=== PATIENT | male | born 1970 | race African-American/Black ===

== ENCOUNTER 2020-06-21 14:19 | Emergency (ER) | payer MEDICAID, SELFPAY ==
--- NOTE | 2020-06-21 14:33 | ED.GENADULT ---
HPI - General Adult General Chief complaint: Chest Pain Stated complaint: CHEST PRESSURE,COUGH,EXP TO COVID Time Seen by Provider: 06/21/20 14:32 Source: patient Mode of arrival: ambulatory Limitations: no limitations History of Present Illness HPI narrative: Mr. Kunz is a 50-year-old male who reports that he has history of hypercholesteremia otherwise no medical/surgical history he presents from home via EMS with complaint of diffuse chest pain and cough with some associated shortness of breath going on for past several days. States his is here admitted to facility for COVID-19 and he has been with her prior to her admission here. He denies any lower extremity swelling. No exertional dyspnea. Upon arrival 98% on room air though slightly tachy at 110. No fever. Onset (ago): day(s) Location: chest Severity: mild Quality: aching Associated symptoms: chest pain and cough Treatments prior to arrival: none Related Data Allergies Allergy/AdvReac Type Severity Reaction Status Date / Time No Known Allergies Allergy Verified 06/21/20 14:51 [No Known Allergies*] Review of Systems Review of Systems: Constitutional: No Weight loss, No Fever, No Chills, No Night Sweats, No Fatigue, No Malaise ENT/Mouth: No Hearing loss, No Ear Pain, No Sinus Pain, No Hoarseness, No sore throat, + Rhinorrhea, No Swallowing Difficulty Eyes: No Eye Pain, No Swelling, No Redness, No Foreign Body, No Discharge, No Vision Changes Cardiovascular: + Chest Pain, No SOB, No Dyspnea on Exertion, No Orthopnea, No Edema, No Palpitations Respiratory: + Cough, No Sputum, No Wheezing, No Smoke Exposure, No Dyspnea Gastrointestinal: No Nausea, No Vomiting, No Diarrhea, No Constipation, No abdominal Pain, No Hematochezia, No Melena Genitourinary: no irregular bleeding, No Dysuria, No Urinary Frequency, No Hematuria, No Urinary Incontinence, No Urgency, No Flank Pain Musculoskeletal: No joint pain, No Myalgias, No Joint Swelling Skin: No Skin Lesions, No rash Neuro: No Weakness, No Numbness, No Paresthesias, No Loss of Consciousness, No Dizziness, No Headache Psych: No Social Issues Heme/Lymph: No Bruising, No Bleeding,No Lymphadenopathy Endocrine: No Polyuria, No Polydipsia, No Temperature Intolerance Yes all other systems are reviewed and are negative PMFSH Past Medical History Medical History (Updated 06/21/20 @ 16:32 by Sidney Sutherland NP) No known health problems Social History Social History Advance Directives: No Advance Directives Information Provided: No Physical Exam Vital Signs: Vital Signs: Last Vital Signs Temp 98.5 F 06/21/20 15:53 Pulse 96 06/21/20 15:53 Resp 20 06/21/20 15:53 BP 136/105 H 06/21/20 15:53 Pulse Ox 99 06/21/20 15:53 Body Mass Index 27.3 Reviewed Const: General: cooperative and healthy appearing; No acute distress or intoxicated appearing Nutritional Appearance: average body habitus Orientation/consciousness: patient oriented x3 HENMT: Head: Yes normal to inspection Ears: hearing grossly normal bilaterally General nose exam: Other nasal findings present (Very mild rhinorrhea) Eyes: General: appearance normal, both eyes and all related structures Visual Pinto: normal visual pinto by confrontation Neck: Neck: Yes normal visual inspection and No tender Thyroid: Thyroid normal Chest: Chest palpation & inspection: normal inspection of the chest Resp: Effort & Inspection: normal respiratory effort Auscultation: clear to auscultation bilaterally Cardio: Jugular venous distension: no JVD Rhythm: regular rhythm Heart sounds: S1 normal heart sound present and S2 normal heart sound present GI: Inspection: Yes normal to inspection Percussion: Yes normal to percussion Auscultation: normal bowel sounds : General: Yes no CVA tenderness Back/Spine/Pelvis: Back: no CVA tenderness Skin: General skin exam: no rashes or lesions noted Neuro: General: patient oriented x3 Extrem: General: Yes normal to inspection Course Course Course Narrative: In review 42-year-old male with history of hypercholesteremia diet-controlled otherwise no significant past medical history presenting with complaint of cough, shortness of breath, associated pleurisy type chest pain ongoing for the past 2-3 days hospitalized for COVID-19 he is concerned he might have it. Clinically well nontoxic appearing. He is slightly tachy at 101 does appear to be somewhat nervous otherwise well nontoxic appearing. His oxygen level 99% on room air. Blood pressure is stable. At this time given his exposure and symptoms will go ahead and check EKG, chest x-ray, cardiac enzymes and a D-dimer as well as COVID, RSV, flu. Will treat with gradual fluids. Reevaluation(s) Reevaluation #1: Labs overall unrevealing. Troponin as well as D-dimer negative. Chest x-ray without acute consolidation/disease. He has been resting comfortably he is ambulatory with steady gait without any evidence of hypoxia oxygen remains at 98%. Will be discharged home with supportive care, return follow-up instructions. [facility] provided. Patient is stable for discharge. Medical Decision Making MDM Narrative Medical decision making narrative: Differential diagnosis include but not limited to viral syndrome, COVID-19, COVID-19 related pneumonia, pulmonary embolism, ACS, dissection less likely. Lab Data Result diagrams: 06/21/20 15:25 06/21/20 15:25 Labs: Lab Results 06/21/20 06/21/20 06/21/20 Range/Units 15:25 15:25 15:25 WBC 5.0 (4.8-10.8) X10*3/uL RBC 5.46 (4.60-5.80) X10*6/uL Hgb 14.5 (14.0-18.0) g/dl Hct 45.6 (42-52) % MCV 83.5 (80-98) fL MCH 26.6 L (27.0-33.0) pg MCHC 31.8 (31.0-36.0) g/dl RDW 14.0 (11.0-16.0) % Plt Count 217 (160-400) X10*3/uL MPV 10.1 (9.4-12.4) fL Immature Gran % (Auto) 0.2 (0.0-0.4) % Neut % (Auto) 60.9 (45-73) % Lymph % (Auto) 26.0 (20-40) % [place] % (Auto) 9.9 (2-11) % Eos % (Auto) 2.2 (0-4) % Baso % (Auto) 0.8 (0-2) % Lymph # (Auto) 1.3 (1.2-4.9) X10*3/uL [place] # (Auto) 0.5 (0.1-1.2) X10*3/uL Eos # (Auto) 0.1 (0.0-0.4) X10*3/uL Baso # (Auto) 0.0 (0.0-0.2) X10*3/uL Abs Immat Gran (auto) 0.01 (0.00-0.03) X10*3/uL Absolute Neuts (auto) 3.0 (2.0-8.3) X10*3/uL Absolute Nucleated RBC 0.000 (0.0-0.012) X10*3/uL Nucleated RBC % (auto) 0.0 (0.0-0.2) /100WBC PT 11.8 (10.8-13.0) SEC INR 1.0 (0.9-1.1) APTT 35.1 (24.1-38.0) SEC D-Dimer < 200 NG/ML Sodium 140 (135-145) mmol/L Potassium 4.0 (3.3-5.1) mmol/l Chloride 105 (96-108) mmol/L Carbon Dioxide 27 (22-29) mmol/L Anion Gap 12 (12-20) BUN 14 (9-16) mg/dL Creatinine 1.04 (0.5-1.4) mg/dL Estim Creat Clear Calc 84.0 Estimated GFR > 60 Random Glucose 94 (60-115) mg/dL Calcium 8.9 (8.4-10.2) mg/dL Total Bilirubin 0.3 (0.0-1.0) mg/dL AST 18 (5-37) U/L ALT 22 (0-40) U/L Alkaline Phosphatase 55 (39-117) U/L Troponin I High Sens (<3.5-35.0) ng/L Total Protein 7.6 (6.5-8.0) g/dL Albumin 4.6 (3.5-5.0) g/dL Coronavirus (PCR) (Negative) Influenza Type A (PCR) (Negative) Influenza Type B (PCR) (Negative) RSV RNA Qual (PCR) (Negative) 06/21/20 06/21/20 Range/Units 15:25 15:25 WBC (4.8-10.8) X10*3/uL RBC (4.60-5.80) X10*6/uL Hgb (14.0-18.0) g/dl Hct (42-52) % MCV (80-98) fL MCH (27.0-33.0) pg MCHC (31.0-36.0) g/dl RDW (11.0-16.0) % Plt Count (160-400) X10*3/uL MPV (9.4-12.4) fL Immature Gran % (Auto) (0.0-0.4) % Neut % (Auto) (45-73) % Lymph % (Auto) (20-40) % [place] % (Auto) (2-11) % Eos % (Auto) (0-4) % Baso % (Auto) (0-2) % Lymph # (Auto) (1.2-4.9) X10*3/uL [place] # (Auto) (0.1-1.2) X10*3/uL Eos # (Auto) (0.0-0.4) X10*3/uL Baso # (Auto) (0.0-0.2) X10*3/uL Abs Immat Gran (auto) (0.00-0.03) X10*3/uL Absolute Neuts (auto) (2.0-8.3) X10*3/uL Absolute Nucleated RBC (0.0-0.012) X10*3/uL Nucleated RBC % (auto) (0.0-0.2) /100WBC PT (10.8-13.0) SEC INR (0.9-1.1) APTT (24.1-38.0) SEC D-Dimer NG/ML Sodium (135-145) mmol/L Potassium (3.3-5.1) mmol/l Chloride (96-108) mmol/L Carbon Dioxide (22-29) mmol/L Anion Gap (12-20) BUN (9-16) mg/dL Creatinine (0.5-1.4) mg/dL Estim Creat Clear Calc Estimated GFR Random Glucose (60-115) mg/dL Calcium (8.4-10.2) mg/dL Total Bilirubin (0.0-1.0) mg/dL AST (5-37) U/L ALT (0-40) U/L Alkaline Phosphatase (39-117) U/L Troponin I High Sens < 3.5 (<3.5-35.0) ng/L Total Protein (6.5-8.0) g/dL Albumin (3.5-5.0) g/dL Coronavirus (PCR) POSITIVE A (Negative) Influenza Type A (PCR) NEGATIVE (Negative) Influenza Type B (PCR) NEGATIVE (Negative) RSV RNA Qual (PCR) NEGATIVE (Negative) Discharge Plan Discharge Clinical Impression: Atypical chest pain, COVID-19 Patient Disposition: Home, Self-Care Instructions: Chest Pain (ED), COVID-19 (Coronavirus Disease 2019) (ED) Additional Instructions: Today you were evaluated for your chest pain and your upper respiratory symptoms You had extensive workup including x-ray of her chest did not show any evidence of pneumonia We checked blood work for heart as well as kidneys and electrolytes which was also within normal limits. We also did another blood test to check for blood clots this was also negative You to isolate yourself Social distancing Remain out of any social activities, work for the next 14 days Supportive cares discussed Return if any concerns or worsening symptoms Thank you Referrals: Physician,Unknown [Primary Care Provider] - 2 weeks (Phone visit with her primary care doctor for well check)
--- NOTE | 2020-06-21 14:36 | ECG_ITS ---
Test Reason : CHEST PAIN Blood Pressure : / mmHG Vent. Rate : 095 BPM Atrial Rate : 095 BPM P-R Int : 176 ms QRS Dur : 080 ms QT Int : 336 ms P-R-T Axes : 054 017 024 degrees QTc Int : 422 ms Normal sinus rhythm Cannot exclude old Septal infarct , age undetermined but could be normal variant Abnormal ECG No previous ECGs available Referred By: Sidney Sutherland Electronically Signed By:CHAVO CROWE
--- NOTE | 2020-06-21 14:36 | XR_ITS ---
EXAMINATION: XR CHEST CLINICAL INFORMATION: Chest pain. COMPARISON: None TECHNIQUE: Frontal view of the chest was obtained. FINDINGS: No significant abnormality is noted involving the heart, lungs, mediastinum, bony thorax or soft tissues. XR/XR chest 1V IMPRESSION: Unremarkable chest examination.
[2020-06-21 14:47] VITALS: BP 146/89; PULSE 108; RESP 16; TEMP 36.9; O2SAT 96; BMI 27.3
--- NOTE | 2020-06-21 15:20 | PC.NURSE ---
called pt's pcp is dr menard at the [facility]
[2020-06-21] MEDS: 0.9 % Sodium Chloride 1,000 ML 999 ML IV (15:27)
[2020-06-21 15:33] LABS: Basophils Percent Auto 0.8 % (0-2); Eosinophils Absolute Auto 0.1 X10*3/uL (0.0-0.4); Eosinophils Percent Auto 2.2 % (0-4); Hematocrit 45.6 % (42-52); Hemoglobin 14.5 g/dl (14.0-18.0); Imm Gran Abs Auto 0.01 X10*3/uL (0.00-0.03); Imm Gran Pct Auto 0.2 % (0.0-0.4); Lymphocytes Absolute Auto 1.3 X10*3/uL (1.2-4.9); MANUAL DIFF FLAG NO; Mean Corpuscular HGB Conc 31.8 g/dl (31.0-36.0); Mean Corpuscular Hemoglobin 26.6 pg (27.0-33.0); Mean Corpuscular Volume 83.5 fL (80-98); Mean Platelet Volume 10.1 fL (9.4-12.4); Monocytes Absolute Auto 0.5 X10*3/uL (0.1-1.2); Monocytes Percent Auto 9.9 % (2-11); Neutrophils Percent Auto 60.9 % (45-73); Platelet Count 217 X10*3/uL (160-400); Red Blood Count 5.46 X10*6/uL (4.60-5.80)
[2020-06-21 15:41] LABS: Prothrombin Time 11.8 SEC (10.8-13.0)
[2020-06-21 15:43] LABS: Partial Thromboplastin Time 35.1 SEC (24.1-38.0)
[2020-06-21 15:44] LABS: D Dimer < 200 NG/ML
[2020-06-21 15:53] VITALS: BP 136/105; PULSE 96; RESP 20; TEMP 36.9; O2SAT 99
[2020-06-21 15:57] LABS: Alanine Aminotransferase 22 U/L (0-40); Albumin Level 4.6 g/dL (3.5-5.0); Alkaline Phosphatase 55 U/L (39-117); Anion Gap 12 (12-20); Aspartate Amino Transferase 18 U/L (5-37); Bilirubin Total 0.3 mg/dL (0.0-1.0); Blood Urea Nitrogen 14 mg/dL (9-16); Calcium 8.9 mg/dL (8.4-10.2); Carbon Dioxide 27 mmol/L (22-29); Chloride 105 mmol/L (96-108); Estimated Glomerular Filt Rate > 60; Glucose Random 94 mg/dL (60-115); Sodium 140 mmol/L (135-145); Total Protein 7.6 g/dL (6.5-8.0)
[2020-06-21 16:01] LABS: Troponin-I High Sensitivity < 3.5 ng/L (<3.5-35.0)
[2020-06-21 16:15] LABS: Influenza A PCR NEGATIVE (Negative); Influenza B PCR NEGATIVE (Negative); Resp Syncy Virus RNA Qual PCR NEGATIVE (Negative)
[2020-06-21 16:17] LABS: SARS COV2 PCR INHOUSE POSITIVE (Negative)
[2020-06-21 17:01] VITALS: BP 151/94; PULSE 86; RESP 16; O2SAT 100
== END 2020-06-21 17:37 | disposition home or self-care (01) ==
PROVIDERS: Nurse Practitioner Primary Care; Emergency Provider Emergency Medicine Emergency Medical Services
DX: U07.1 COVID-19 (principal); R05 Cough; R07.89 Other chest pain
CPT/HCPCS: 0241U; 36415; 71045; 80053; 84484; 85025; 85379; 85610; 85730; 93005; 96360; 99284

== ENCOUNTER 2020-07-03 11:06 | Emergency (ER) | payer MEDICAID, SELFPAY ==
[2020-07-03 11:21] VITALS: BP 130/83; PULSE 106; RESP 18; TEMP 37.7; O2SAT 98; BMI 25.8
--- NOTE | 2020-07-03 12:20 | ED_ITS ---
HPI - Abdominal Pain General Chief Complaint: Abdominal Pain Stated Complaint: flu like sx's Time Seen by Provider: 07/03/20 11:47 Source: patient Mode of arrival: ambulatory Limitations: no limitations History of Present Illness HPI narrative: Patient with COVID positive on 06/21 comes here with family member for ongoing of epigastric pain since was positive with COVID also complaining of mid chest pain patient also going on for more last 10 days patient denies any cough or shortness of breath patient came in just to be checked for COVID as her partner also came here to be tested patient denies any nausea/vomiting. Patient does have diarrhea 2-3 times bowel movements every day for last 2 weeks Related Data Allergies Allergy/AdvReac Type Severity Reaction Status Date / Time No Known Allergies Allergy Verified 06/21/20 14:51 [No Known Allergies*] Review of Systems Review of Systems Constitutional : No Weight loss, No Fever, No Chills ENT/Mouth : No sore throat, No Rhinorrhea Eyes: No Eye Pain, No Swelling Cardiovascular : + Chest Pain, no palpitations Respiratory : No Cough, No Sputum, no shortness of breath Gastrointestinal : no Nausea, No Vomiting, ++ Diarrhea, ++ abdominal Pain, no black stools Genitourinary : No Dysuria, No Urinary Frequency Musculoskeletal : No joint pain, No Myalgias, No Joint Swelling Skin : No Skin Lesions, No rash Neuro : No Weakness, No Numbness, No Dizziness, No Headache Psych : No Anxiety/Panic, No Depression Heme/Lymph: No Bruising, No Lymphadenopathy Endocrine : No Polyuria, No Polydipsia All other systems reviewed and are negative Physical Exam Vital Signs: Vital Signs: Last Vital Signs Temp 99.9 F 07/03/20 11:21 Pulse 106 H 07/03/20 11:21 Resp 18 07/03/20 11:21 BP 130/83 07/03/20 11:21 Pulse Ox 98 07/03/20 11:21 Body Mass Index 25.8 Appearance: Alert. Oriented X3. No acute distress. Eyes: Pupils equal, round and reactive to light. ENT: Pharynx normal. Neck: Normal inspection. Neck supple. CVS: Normal heart rate and rhythm. Pulses normal. Respiratory: No respiratory distress. Breath sounds normal. Abdomen: Soft mild epigastric tenderness Bowel sounds are present, no mass palpable, no CVA tenderness Skin: Skin warm and dry. Normal skin color. Normal skin turgor. Extremities: No lower extremity edema. Neuro: Oriented X 3. No motor deficit. No sensory deficit. MDM - Abdominal Pain Lab Data Attestation: I reviewed the patient's lab results. Labs: Lab Results 07/03/20 Range/Units 12:35 COVID-19 ([facility]) Negative (Negative) COVID-19 Clin Com See Note ECG Data Attestation: I personally reviewed and interpreted this ECG as follows: Interpretation: Normal sinus rhythm heart rate 98 normal intervals normal axis normal ST T wave changes impression normal EKG no acute ischemia Discharge Plan Discharge Clinical Impression: Chest pain of uncertain etiology, COVID-19 Patient Disposition: Home, Self-Care Instructions: Chest Pain (ED) Additional Instructions: Your repeat COVID testing is negative. Your cardiogram is normal. Follow-up with primary care doctor if any concerns Interventions: ED Discharge Assessment Last Done: 07/03/20 15:24 Discharge Date/Time: 07/03/20 15:25 [facility] Past Medical History Medical History No known health problems Social History Social History Smoking Status: Current every day smoker Advance Directives: No Advance Directives Information Provided: No
[2020-07-03 13:01] LABS: COVID-19 Test Negative (Negative)
== END 2020-07-03 15:25 | disposition home or self-care (01) ==
PROVIDERS: Emergency Provider Internal Medicine
DX: R07.9 Chest pain, unspecified (principal); Z86.16 Personal history of COVID-19
CPT/HCPCS: 36415; 87635; 99283

== ENCOUNTER 2020-07-08 10:14 | Emergency (ER) | payer MEDICAID, SELFPAY ==
[2020-07-08 10:39] VITALS: BP 154/90; PULSE 100; RESP 18; TEMP 37.1; O2SAT 96; BMI 25.8
[2020-07-08] MEDS: Lidocaine HCl 1%/Epi 1:100,000 20 ML VIAL 10 ML INFILTRATI (11:07)
--- NOTE | 2020-07-08 11:23 | ED.GENADULT ---
HPI - General Adult General Chief complaint: Extremity Injury, Lower Stated complaint: fb foot Time Seen by Provider: 07/08/20 10:34 Source: patient Mode of arrival: ambulatory Limitations: no limitations History of Present Illness HPI narrative: 50-year-old male who presents emergency department for evaluation of pain in his heel. He states that he was working in his yard, he was wearing sneakers when he stepped on something that went through his sneaker and into his left heel. He states that since then he feels like there is something in his heel and he is having pain when he walks. The patient states that he had a tetanus shot within 1 year. Related Data Previous Rx's Medication Instructions Recorded ciprofloxacin HCl [Cipro] 500 mg PO Q12H 7 Days #14 tab 07/08/20 Allergies Allergy/AdvReac Type Severity Reaction Status Date / Time No Known Allergies Allergy Verified 06/21/20 14:51 [No Known Allergies*] Review of Systems Review of Systems: Yes all other systems are reviewed and are negative [facility] Past Medical History Source: unable to obtain Medical History No known health problems Social History Social History Smoking Status: Current every day smoker Advance Directives: No Advance Directives Information Provided: No Physical Exam Vital Signs: Vital Signs: Last Vital Signs Temp 98.8 F 07/08/20 10:39 Pulse 100 07/08/20 10:39 Resp 18 07/08/20 10:39 BP 154/90 H 07/08/20 10:39 Pulse Ox 96 07/08/20 10:39 Body Mass Index 25.8 Const: General: cooperative and healthy appearing Orientation/consciousness: oriented to person and oriented to place Limitations: no limitations Skin: General skin exam: other (Very dry skin on the bottom of his feet) Neuro: General: oriented to person and oriented to place Extrem: General: Yes other (The patient had a dark spot over his heel the possible puncture ) Course Course Course Narrative: 50-year-old male with a puncture wound to his heel which occurred outdoors through sneakers. The patient does have tenderness with palpation of his left heel and initially I did see a dark hector in the area where thought he had a puncture wound. When I went to clean the patient off with Betadine the dark hector went away but he still was tender in area. At this time I do not think that exploring this wound make sense since the injury occurred 24 hours prior to evaluation. The patient will be treated prophylactically with ciprofloxacin to try and prevent infection from this puncture wound. The patient was advised to soak his foot in warm water for 15 minutes 4 to 6 times a day. Discharge Plan Discharge Clinical Impression: Puncture wound Patient Disposition: Home, Self-Care Instructions: Puncture Wound in the Foot (ED) Additional Instructions: At this time, I do not see any splinters or foreign bodies in your heel. I believe that she to hurt your heel from the puncture wound and this is causing the pain. Sometimes there can be a foreign body in the heel that cannot be seen. Puncture wounds can cause a bad infection of the heel therefore I am starting you on an antibiotic called ciprofloxacin to try to prevent infection. Take ciprofloxacin 500 mg pills, 1 pill twice a day for 7 days. Take ibuprofen 200 mg pills, 3 pills every 6 hours as needed for pain. Take Tylenol (acetaminophen) 500 mg pills, 2 pills every 4 to 6 hours as needed for pain. Follow-up with our barking machine feeder (foot doctor) in 2-3 days. Please return to the emergency department if your symptoms get worse or if you develop any symptoms that are concerning to you. Prescriptions: New ciprofloxacin HCl [Cipro] 500 mg tablet 500 mg PO Q12H 7 Days Qty: 14 RF: 0 Referrals: Sae Dickey [Physician] - 2 days (Puncture wound through sneaker, no foreign body seen, tender left heel, started on ciprofloxacin 500 mg twice a day prophylactically.)
== END 2020-07-08 11:44 | disposition home or self-care (01) ==
PROVIDERS: Emergency Provider Emergency Medicine Emergency Medical Services
DX: S91.332A Puncture wound without foreign body, left foot, initial encounter (principal); M79.672 Pain in left foot; W26.9XXA Contact with unspecified sharp object(s), initial encounter; Y93.01 Activity, walking, marching and hiking; Y92.410 Unspecified street and highway as the place of occurrence of the external cause; Y99.9 Unspecified external cause status; F17.200 Nicotine dependence, unspecified, uncomplicated; Z71.6 Tobacco abuse counseling; Z79.899 Other long term (current) drug therapy
CPT/HCPCS: 99283; 99284

== ENCOUNTER 2021-09-21 01:16 | Emergency (ER) | payer MEDICAID, SELFPAY ==
--- NOTE | 2021-09-21 | ECG_ITS ---
Test Reason : Medical Clearance Blood Pressure : / mmHG Vent. Rate : 073 BPM Atrial Rate : 073 BPM P-R Int : 196 ms QRS Dur : 076 ms QT Int : 372 ms P-R-T Axes : 067 048 030 degrees QTc Int : 409 ms Normal sinus rhythm Septal infarct (cited on or before 21-JUN-2020) Abnormal ECG When compared with ECG of 21-JUN-2020 15:50, Questionable change in initial forces of Septal leads Referred By: Cindy Gerardo Electronically Signed By:CHAVO CROWE
[2021-09-21 01:25] VITALS: BP 148/89; PULSE 87; RESP 16; TEMP 36.6; O2SAT 99; BMI 27.3
--- NOTE | 2021-09-21 02:08 | ED.PSYCH ---
HPI - Psych General Chief Complaint: Psychiatric Symptoms Stated Complaint: SI Time Seen by Provider: 09/21/21 02:08 Source: patient, EMS and police Mode of arrival: ambulatory Limitations: no limitations History of Present Illness HPI Narrative: 51-year-old male brought in by EMS with police under [place] for further evaluation of SI statement. Patient was arguing with his stated that he will kill himself, patient now confirmed that he did not mean it and he regrets his statement. Patient decline any auditory or visual hallucination. No fever, no chill. Related Data Previous Rx's Medication Instructions Recorded ciprofloxacin HCl 500 mg tablet 500 mg PO Q12H 7 Days #14 tab 07/08/20 (Cipro) Allergies Allergy/AdvReac Type Severity Reaction Status Date / Time No Known Allergies Allergy Verified 06/21/20 14:51 [No Known Allergies*] Review of Systems Review of Systems: All other systems are reviewed and are negative Constitutional: Reports as per HPI and Reports no additional constitutional complaints Eyes: Reports as per HPI and Reports no additional eye complaints Reports system reviewed and no additional complaints, except as documented Cardiovascular: Reports as per HPI and Reports no additional cardiovascular complaints Respiratory: Reports as per HPI and Reports no additional respiratory complaints Gastrointestinal: Reports as per HPI and Reports no additional gastrointestinal complaints Genitourinary: Reports no additional female genitourinary complaints Musculoskeletal: Reports no additional musculoskeletal complaints Skin/Breast: Reports system reviewed and no additional complaints, except as docu Psychiatric: Reports no additional psychiatric complaints Endocrine: Reports no additional endocrine complaints Hematologic/Lymphatic: Reports no additional hematologic/lymphatic complaints Allergic/Immunologic: Reports no additional allergic/immunologic complaints Reports system reviewed and no additional complaints, except as documented and Reports Abnormal speech present [facility] Past Medical History Medical History No known health problems Social History Social History Advance Directives: No Physical Exam Vital Signs: Vital Signs: Last Vital Signs Temp 98 F 09/21/21 01:25 Pulse 87 09/21/21 01:25 Resp 16 09/21/21 01:25 BP 148/89 H 09/21/21 01:25 Pulse Ox 99 09/21/21 01:25 BMI result Body Mass Index 27.3 Vital signs have been reviewed as appeared to be correct. Blood pressure normal. Heart rate normal. Respiration rate normal. Temperature normal. Oxygen saturation normal. Appearance: Alert. Oriented X3. No acute distress. Head: Normal external exam. Normocephalic. Atraumatic. No Khan signs noted. No raccoon eyes noted Eyes: PERRLA. EOMI. Conjunctiva and sclera normal. Eyelids normal. ENT: TM's Normal. Pharynx normal. Uvula midline. Moist mucous membranes. No trismus noted. No drooling noted. No muffled voice noted. Neck: Normal inspection. Neck supple. FROM. No adenopathy. Thyroid Normal. No meningeal signs. No neck mass noted. CVS: Normal heart rate and rhythm. Heart sound normal. No murmurs noted. Pulses normal throughout. Respiratory: No respiratory distress. Painless inspiration. Breath sounds normal. No wheezes/rales/rhonchi noted. Chest nontender. No accessory muscle usage noted or decreased air movement noted. Abdomen: Soft and nontender. Bowel sounds normal in all 4 quadrants. No distention noted. No organomegaly noted. No visible injury noted. Back: No CVA tenderness. Full range of motion noted. Skin: Skin warm and dry. Normal skin color. Normal skin turgor. No rashes/lesions/lacerations noted. Extremities: No lower extremity edema. Extremities exhibit normal range of motion. Extremities nontender. Neuro: Oriented X 3. Cranial nerve exam: II-XII are grossly intact No motor deficit. No sensory deficit. Reflexes normal. Patient Orientation: Person, Place, Time and Situation Level of Consciousness: Awake, Appropriate and Alert Patient Behavior: Appropriate, Guarded, Cooperative and Anxious Mood Description: Constricted, Blunted and Apprehensive Affect Description: Constricted, Blunted and Apprehensive Patient Cognition Impaired: No Ability to Follow Directions: Excellent Speech Pattern: Clear, Appropriate and Spontaneous Speech Memory Description: Intact, Immediate Intact and Short Term Intact Hallucinations: None Delusions: Not Present Thought Process: Intact Thought Content: positive for Intact, positive for Logical, denies Suicidal Ideation and denies Homicidal Ideation. Depressive Symptoms: Feelings of Guilt (relating to incident at work) Judgement: Good Judgement and Insight: Intact Course Reevaluation(s) Reevaluation #1: Physician observation started at 2:15 . Patient placed in physician observation because the patient needed more time for [facility] evaluation. patient's vital sign were stable, patient is alert and oriented , neuro exam unchanged, unremarkable rest of physical exam. Time: 02:13 Discharge Plan Discharge Clinical Impression: Suicidal ideation Prescriptions: No Action ciprofloxacin HCl [Cipro] 500 mg tablet 500 mg PO Q12H 7 Days Qty: 14 0RF
[2021-09-21 02:24] LABS: Amphetamine Screen Urine Not Detected (Not Detect); Barbiturates, Urine Not Detected (Not Detect); Benzodiazepines Screen Urine Not Detected (Not Detect); Cannabinoid Screen Urine Not Detected (Not Detect); Cocaine Screen Urine Not Detected (Not Detect); Fentanyl, urine Not Detected (Not Detect); Opiate Screen Urine Not Detected (Not Detect); Phencyclidine Screen Urine Not Detected (Not Detect)
[2021-09-21 02:25] LABS: MANUAL DIFF FLAG NO
[2021-09-21 02:27] LABS: COVID-19 Test Negative (Negative)
[2021-09-21 02:30] LABS: Basophils Absolute Auto 0.1 X10*3/uL (0.0-0.2); Basophils Percent Auto 1.1 % (0-2); Eosinophils Absolute Auto 0.5 X10*3/uL (0.0-0.4); Eosinophils Percent Auto 6.5 % (0-4); Hematocrit 43.4 % (42.0-52.0); Hemoglobin 13.7 g/dl (14.0-18.0); Imm Gran Abs Auto 0.02 X10*3/uL (0.00-0.03); Imm Gran Pct Auto 0.2 % (0.0-0.4); Lymphocytes Absolute Auto 3.2 X10*3/uL (1.2-4.9); Mean Corpuscular HGB Conc 31.6 g/dl (31.0-36.0); Mean Corpuscular Volume 82.5 fL (80.0-98.0); Mean Platelet Volume 9.7 fL (9.4-12.4); Monocytes Absolute Auto 0.8 X10*3/uL (0.1-1.2); Monocytes Percent Auto 9.7 % (2-11); Neutrophils Absolute Auto 3.7 x10*3/uL (2.0-8.3); Neutrophils Percent Auto 44.5 % (45-73); Platelet Count 264 X10*3/uL (160-400); Red Blood Count 5.26 X10*6/uL (4.60-5.80); Red Cell Distribution Width 14.2 % (11.0-16.0); White Blood Count 8.4 X10*3/uL (4.8-10.8)
[2021-09-21 02:46] LABS: Ethanol < 10 mg/dL
[2021-09-21 02:48] LABS: Anion Gap 13 (12-20); Blood Urea Nitrogen 18 mg/dL (9-16); Calcium 9.1 mg/dL (8.4-10.2); Carbon Dioxide 21 mmol/L (22-29); Chloride 110 mmol/L (96-108); Creatinine Clr Calc Pharmacy 99.3; Estimated Glomerular Filt Rate > 60; Glucose Random 102 mg/dL (60-115); Potassium 4.5 mmol/L (3.3-5.1); Sodium 139 mmol/L (135-145)
--- NOTE | 2021-09-21 05:57 | PC.NURSE ---
Patient slept through the night, no distress observed/reported, [facility] referral completed/confirmed pending evaluation in AM, patient is currently not on any medication, behavior calm and quiet, VSS, will continue to monitor.
--- NOTE | 2021-09-21 07:02 | PC.NURSE ---
patient appears to remain asleep at present respiratiopns are even and unlabored patient appears in no distress
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
--- NOTE | 2021-09-22 09:34 | MHC.CARE ---
CARE Team Marketing Analytics Specialist made follow-up call, but pt. was not awake at this time. Marketing Analytics Specialist left CARE Team number for pt. to call back later in the day.
--- NOTE | 2021-09-23 11:14 | MHC.CARE ---
CARE Team contacts pt as a follow up to his visit to the ED.? Pt stated that he is doing well.? He sounded upbeat but hurried on the telephone.? He stated all is going well, denies any SI or thoughts of self-harm.? He has not yet followed up with his therapist regarding his visit and has not yet followed up with [facility].? Pt stated he will speak with his therapist next week.
== END 2021-09-21 15:13 | disposition home or self-care (01) ==
PROVIDERS: Emergency Provider Emergency Medicine; PCP Internal Medicine
DX: R45.851 Suicidal ideations (principal); Z20.822 Contact with and (suspected) exposure to COVID-19; Z72.89 Other problems related to lifestyle; Z63.0 Problems in relationship with spouse or partner
CPT/HCPCS: 36415; 80048; 80307; 82077; 85025; 87635; 93005; 99284

== ENCOUNTER 2022-03-12 15:25 | Emergency (ER) | payer MEDICAID, SELFPAY ==
--- NOTE | ~2022-03-12 | XR_ITS ---
EXAMINATION: XR CHEST CLINICAL INFORMATION: Right-sided chest pain. Evaluate for pneumonia. COMPARISON: Chest radiograph dated from 06/21/2020. TECHNIQUE: Frontal view of the chest was obtained. FINDINGS: Normal appearance of the cardiomediastinal silhouette. EKG wires overlie the chest. No focal airspace opacity, pleural effusion or pneumothorax. No acute osseous abnormalities. The imaged upper abdomen is within normal limits. XR/XR chest 1V IMPRESSION: No acute cardiopulmonary findings.
[2022-03-12 15:46] VITALS: BP 133/80; PULSE 121; RESP 18; TEMP 36.9; O2SAT 96; BMI 27.3
--- NOTE | 2022-03-12 16:01 | ECG_ITS ---
Test Reason : CHEST PAIN Blood Pressure : / mmHG Vent. Rate : 112 BPM Atrial Rate : 112 BPM P-R Int : 156 ms QRS Dur : 072 ms QT Int : 306 ms P-R-T Axes : 060 017 029 degrees QTc Int : 417 ms Sinus tachycardia Otherwise normal ECG When compared with ECG of 21-SEP-2021 02:05, Vent. rate has increased BY 39 BPM Criteria for Septal infarct are no longer Present Referred By: Generic ED Physician Electronically Signed By:WILSON WEN
[2022-03-12 16:03] VITALS: BP 130/88; PULSE 109; RESP 18; TEMP 36.9; O2SAT 96
--- NOTE | 2022-03-12 16:14 | PC.NURSE ---
Pt in sinus tachycardia at a rate of 104 on cardiac rehab nurse. He complains of a 10/10 sharp right sided chest pain which worsens on inspiratory and expiratory efforts. Respiration is even and non labored. pt is resting quietly. Awaiting ED provider.
--- NOTE | 2022-03-12 16:20 | ED_ITS ---
HPI - Chest Pain General Chief Complaint: Chest Pain Stated Complaint: chest pain Time Seen by Provider: 03/12/22 16:20 Source: patient Mode of arrival: ambulatory Limitations: no limitations History of Present Illness HPI narrative: 51-year-old male who presents emergency department for evaluation of right-sided anterior chest pain. The patient states the pain started 3 days prior while he was watching television. The pain came on suddenly. The pain is been constant since onset. He states the pain is sharp pain which is 10/10 . The pain is worse with breathing but not movement. He has been taking aspirin with no relief. He denied fever, chills, rhinorrhea, sore throat, cough, shortness of breath or dyspnea on exertion. He has not gone on any long trips, had any recent surgeries or as pain or swelling in his lower extremities. He denied nausea, vomiting or diarrhea. This is his 1st episode of this type of pain MD complaint: chest pain Onset (ago): day(s) (3) Timing of current episode: constant Prior episodes: No Onset: during rest Pain location: right chest Pain radiation: none Severity: severe Pain scale (0-10): 10 Quality: sharp Relieving factors: nothing Exacerbating factors: inspiration Treatment prior to arrival: aspirin Risk Factors Coronary artery disease risk factors: none Thoracic aortic dissection risk factors: none Related Data Previous Rx's Medication Instructions Recorded quetiapine 50 mg tablet (Seroquel) 50 mg PO BID 7 days #14 tabs 09/21/21 acetaminophen 500 mg tablet 1,000 mg PO Q6H PRN fever or pain 03/12/22 (Tylenol Extra Strength) #20 tabs ibuprofen 600 mg tablet 600 mg PO Q6H PRN pain #30 tabs 03/12/22 Allergies Allergy/AdvReac Type Severity Reaction Status Date / Time No Known Allergies Allergy Verified 06/21/20 14:51 [No Known Allergies*] Review of Systems Review of Systems: Yes all other systems are reviewed and are negative [facility] Past Medical History [facility] Narrative: past medical history: None. Past surgical history: None. Social history: Smokes 1/2 pack of cigarettes per day times 35 years. He occasionally drinks beer. He denies drug use. Medical History No known health problems Social History Social History Alcohol intake: current Alcohol intake frequency: a few times a week Alcohol type: beer Patient Tobacco Use Status: Current everyday Tobacco user Use of substances other than those prescribed or required for medical reasons: No Advance Directives: No Advance Directives Information Provided: No Physical Exam Vital Signs: Vital Signs: Last Vital Signs Temp 98.2 F 03/12/22 18:12 Pulse 99 03/12/22 18:12 Resp 17 03/12/22 18:12 BP 131/92 H 03/12/22 18:12 Pulse Ox 98 03/12/22 18:12 O2 Del Method 03/12/22 18:12 BMI result Body Mass Index 27.3 Const: General: cooperative and no acute distress Orientation/consciousness: oriented to person and oriented to place Limit ations: no limitations HEENT: Head: Yes normal to inspection, Yes normocephalic and Yes atraumatic Ears: external ears normal General nose exam: Normal external nose present Face and sinus: Yes normal facial exam Mouth: Normal oral and palatal mucosa present Throat: Yes posterior oropharynx normal Eyes: General: appearance normal, both eyes and all related structures Pupils: Equal, round and reactive pupils present Neck: Neck: Yes normal visual inspection, Yes no lymphadenopathy, Yes trachea midline and Yes supple Chest: Chest palpation & inspection: normal inspection of the chest and normal palpation of entire chest wall Resp: Effort & Inspection: normal respiratory effort and able to speak in complete sentences Auscultation: clear to auscultation bilaterally Cardio: Rate: regular rate Rhythm: regular rhythm Heart sounds: S1 normal heart sound present, S2 normal heart sound present and no murmurs GI: Inspection: Yes normal to inspection Palpation (GI): Soft to palpation, nontender and no guarding Auscultation: normal bowel sounds : General: Yes no CVA tenderness Back/Spine/Pelvis: Back: no CVA tenderness Skin: General skin exam: no rashes or lesions noted Neuro: General: oriented to person and oriented to place Cranial nerves: Yes CN's II-XII intact bilaterally and Yes Equal, round and reactive pupils present Cognition (Neuro): normal cognition Motor exam (neuro): 5/5 motor strength present throughout Extrem: General: Yes normal to inspection Psych: Appearance: grossly normal Speech and movement: Normal speech and movement present Affect: normal affect Attitude: cooperative Thought process: Normal thought process present Thought content: Normal thought content present Course Course Course Narrative: 51-year-old male who presents emergency department for evaluation of right- sided pleuritic chest pain x3 days, the pain came on suddenly while watching television, the pain is been constant and is 10/10, the pain is worse with inspiration but unchanged with movement or palpable patient. He has had no other associated symptoms, he denied dyspnea on exertion or shortness of breath. Vital signs revealed an elevated pulse of 121 otherwise unremarkable. Physical examination was unremarkable. Differential includes was not limited to chest wall pain, pleurisy, pneumonia, PE. The patient is PERC positive given his elevated heart rate. I ordered a CBC, CMP, D-dimer, PT /INR, PTT, troponin, EKG, two view chest x-ray. Patient's pain was treated with Toradol 30 mg IV. 1824: Laboratory evaluation was unremarkable including a non elevated D-dimer and a below detectable limits at high sensitivity troponin I. Patient's chest x-ray was also unremarkable. Patient's pain is consistent with chest wall pain or pleurisy and I did discuss this with him. Patient's pain did resolve with the IV Toradol. The patient was given a prescription for ibuprofen and Tylenol. He was given verbal and printed instructions and discharged home. MDM - Chest Pain Medical Records Data Attestation: I reviewed the patient's medical records. Lab Data Attestation: I reviewed the patient's lab results. Result diagrams: 03/12/22 16:52 03/12/22 16:52 Labs: Lab Results 03/12/22 03/12/22 03/12/22 Range/Units 16:52 16:52 16:52 WBC 9.4 (4.8-10.8) X10*3/uL RBC 5.23 (4.60-5.80) X10*6/uL Hgb 13.6 L (14.0-18.0) g/dl Hct 42.0 (42.0-52.0) % MCV 80.3 (80.0-98.0) fL MCH 26.0 L (27.0-33.0) pg MCHC 32.4 (31.0-36.0) g/dl RDW 14.6 (11.0-16.0) % Plt Count 250 (160-400) X10*3/uL MPV 9.7 (9.4-12.4) fL Immature Gran % (Auto) 0.2 (0.0-0.4) % Neut % (Auto) 55.7 (45-73) % Lymph % (Auto) 32.4 (20-40) % Cavalier % (Auto) 8.0 (2-11) % Eos % (Auto) 3.1 (0-4) % Baso % (Auto) 0.6 (0-2) % Lymph # (Auto) 3.1 (1.2-4.9) X10*3/uL Cavalier # (Auto) 0.8 (0.1-1.2) X10*3/uL Eos # (Auto) 0.3 (0.0-0.4) X10*3/uL Baso # (Auto) 0.1 (0.0-0.2) X10*3/uL Abs Immat Gran (auto) 0.02 (0.00-0.03) X10*3/uL Absolute Neuts (auto) 5.2 (2.0-8.3) x10*3/uL Absolute Nucleated RBC 0.000 (0.0-0.012) X10*3/uL Nucleated RBC % (auto) 0.0 (0.0-0.2) /100WBC PT 10.7 (10.0-13.1) SEC INR 0.9 (0.9-1.1) APTT 30.1 (26.0-36.4) SEC D-Dimer High Sensitivty 171 NG/ML Sodium 142 (135-145) mmol/L Potassium 4.2 (3.3-5.1) mmol/L Chloride 107 (96-108) mmol/L Carbon Dioxide 24 (22-29) mmol/L Anion Gap 15 (12-20) BUN 18 H (9-16) mg/dL Creatinine 0.81 (0.5-1.4) mg/dL Estim Creat Clear Calc 106.7 Estimated GFR > 60 Random Glucose 98 (60-115) mg/dL Calcium 9.4 (8.4-10.2) mg/dL Total Bilirubin < 0.2 (0.0-1.0) mg/dL AST 19 (5-37) U/L ALT 25 (0-40) U/L Alkaline Phosphatase 60 (39-117) U/L Troponin I High Sens (<3.5-35.0) ng/L Total Protein 7.0 (6.5-8.0) g/dL Albumin 4.1 (3.5-5.0) g/dL Lipase 35 (8-78) U/L 03/12/22 Range/Units 16:52 WBC (4.8-10.8) X10*3/uL RBC (4.60-5.80) X10*6/uL Hgb (14.0-18.0) g/dl Hct (42.0-52.0) % MCV (80.0-98.0) fL MCH (27.0-33.0) pg MCHC (31.0-36.0) g/dl RDW (11.0-16.0) % Plt Count (160-400) X10*3/uL MPV (9.4-12.4) fL Immature Gran % (Auto) (0.0-0.4) % Neut % (Auto) (45-73) % Lymph % (Auto) (20-40) % Cavalier % (Auto) (2-11) % Eos % (Auto) (0-4) % Baso % (Auto) (0-2) % Lymph # (Auto) (1.2-4.9) X10*3/uL Cavalier # (Auto) (0.1-1.2) X10*3/uL Eos # (Auto) (0.0-0.4) X10*3/uL Baso # (Auto) (0.0-0.2) X10*3/uL Abs Immat Gran (auto) (0.00-0.03) X10*3/uL Absolute Neuts (auto) (2.0-8.3) x10*3/uL Absolute Nucleated RBC (0.0-0.012) X10*3/uL Nucleated RBC % (auto) (0.0-0.2) /100WBC PT (10.0-13.1) SEC INR (0.9-1.1) APTT (26.0-36.4) SEC D-Dimer High Sensitivty NG/ML Sodium (135-145) mmol/L Potassium (3.3-5.1) mmol/L Chloride (96-108) mmol/L Carbon Dioxide (22-29) mmol/L Anion Gap (12-20) BUN (9-16) mg/dL Creatinine (0.5-1.4) mg/dL Estim Creat Clear Calc Estimated GFR Random Glucose (60-115) mg/dL Calcium (8.4-10.2) mg/dL Total Bilirubin (0.0-1.0) mg/dL AST (5-37) U/L ALT (0-40) U/L Alkaline Phosphatase (39-117) U/L Troponin I High Sens < 3.5 (<3.5-35.0) ng/L Total Protein (6.5-8.0) g/dL Albumin (3.5-5.0) g/dL Lipase (8-78) U/L ECG Data ECG #1: Attestation: I personally reviewed and interpreted this ECG as follows: Interpretation: 1557: Sinus tachycardia with a rate of 112, no ST segment elevation, no ST segment depression, no significant T-wave abnormalities, no PVCs, no PACs, except for the tachycardia this is a normal EKG. Discharge Plan Discharge Clinical Impression: Pleuritic chest pain Patient Disposition: Home, Self-Care Instructions: Pleurisy (ED) Additional Instructions: Your EKG was normal. Your chest x-ray was normal, there was no evidence of pneumonia. There is no bullet seen in your chest. Your blood work was normal including a non elevated D-dimer (marker for blood clots) and a nondetectable troponin (marker for heart attacks). This is very reassuring Your pain is most likely caused by inflammation of the the muscles of your chest with the lining of your lung (pleurisy). This is treated with anti-inflammatory pain medications like ibuprofen I prescribed the following medications for your: Take ibuprofen 600 mg pills, 1 pills every 6 hours as needed for pain. Take Tylenol (acetaminophen) 500 mg pills, 2 pills every 4 to 6 hours as needed for pain. Follow-up with your doctor in 2 days. Please return to the emergency department if your symptoms get worse or if you develop any symptoms that are concerning to you. Prescriptions: New acetaminophen [Tylenol Extra Strength] 500 mg tablet 1,000 mg PO Q6H PRN (Reason: fever or pain) Qty: 20 0RF ibuprofen 600 mg tablet 600 mg PO Q6H PRN (Reason: pain) Qty: 30 0RF No Action quetiapine [Seroquel] 50 mg tablet 50 mg PO BID 7 Days Qty: 14 0RF
[2022-03-12 16:59] LABS: MANUAL DIFF FLAG NO
[2022-03-12 17:02] LABS: Basophils Absolute Auto 0.1 X10*3/uL (0.0-0.2); Basophils Percent Auto 0.6 % (0-2); Eosinophils Absolute Auto 0.3 X10*3/uL (0.0-0.4); Eosinophils Percent Auto 3.1 % (0-4); Hemoglobin 13.6 g/dl (14.0-18.0); Imm Gran Abs Auto 0.02 X10*3/uL (0.00-0.03); Imm Gran Pct Auto 0.2 % (0.0-0.4); Lymphocytes Absolute Auto 3.1 X10*3/uL (1.2-4.9); Lymphocytes Percent Auto 32.4 % (20-40); Mean Corpuscular HGB Conc 32.4 g/dl (31.0-36.0); Mean Corpuscular Volume 80.3 fL (80.0-98.0); Mean Platelet Volume 9.7 fL (9.4-12.4); Monocytes Absolute Auto 0.8 X10*3/uL (0.1-1.2); Neutrophils Absolute Auto 5.2 x10*3/uL (2.0-8.3); Neutrophils Percent Auto 55.7 % (45-73); Platelet Count 250 X10*3/uL (160-400); Red Blood Count 5.23 X10*6/uL (4.60-5.80); Red Cell Distribution Width 14.6 % (11.0-16.0); White Blood Count 9.4 X10*3/uL (4.8-10.8)
[2022-03-12 17:05] LABS: INTERNATIONAL NORM RATIO 0.9 (0.9-1.1); Prothrombin Time 10.7 SEC (10.0-13.1)
[2022-03-12 17:07] LABS: D Dimer High Sensitivity 171 NG/ML
[2022-03-12 17:08] LABS: Partial Thromboplastin Time 30.1 SEC (26.0-36.4)
[2022-03-12] MEDS: Ketorolac Tromethamine 15 MG/ML VIAL 30 MG IVPUSH (17:15)
[2022-03-12 17:23] LABS: Alanine Aminotransferase 25 U/L (0-40); Albumin Level 4.1 g/dL (3.5-5.0); Alkaline Phosphatase 60 U/L (39-117); Anion Gap 15 (12-20); Aspartate Amino Transferase 19 U/L (5-37); Bilirubin Total < 0.2 mg/dL (0.0-1.0); Blood Urea Nitrogen 18 mg/dL (9-16); Calcium 9.4 mg/dL (8.4-10.2); Carbon Dioxide 24 mmol/L (22-29); Chloride 107 mmol/L (96-108); Creatinine Clr Calc Pharmacy 106.7; Estimated Glomerular Filt Rate > 60; Glucose Random 98 mg/dL (60-115); Lipase 35 U/L (8-78); Potassium 4.2 mmol/L (3.3-5.1); Sodium 142 mmol/L (135-145); Troponin-I High Sensitivity < 3.5 ng/L (<3.5-35.0)
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
[2022-03-12 18:12] VITALS: BP 131/92; PULSE 99; RESP 17; TEMP 36.8; O2SAT 98
--- NOTE | 2022-03-12 18:15 | PC.NURSE ---
Pt is resting quietly, respiration is even and non labored. ekg monitor tech is in sinus tachycardia at a rate of 100 . Reported a decrease in pain from 10/10 to 7/10 after admin of ketorolac.
== END 2022-03-12 18:40 | disposition home or self-care (01) ==
PROVIDERS: Emergency Provider Emergency Medicine Emergency Medical Services
DX: R07.89 Other chest pain (principal); R00.0 Tachycardia, unspecified; F17.200 Nicotine dependence, unspecified, uncomplicated; Z79.899 Other long term (current) drug therapy; Z71.6 Tobacco abuse counseling
CPT/HCPCS: 36415; 71045; 80053; 83690; 84484; 85025; 85379; 85610; 85730; 93005; 96374; 96375; 99284; 99285; J1885

== ENCOUNTER 2022-11-12 17:06 | Emergency (ER) | payer MEDICAID, SELFPAY ==
--- NOTE | ~2022-11-12 | XR_ITS ---
EXAMINATION: XR ELBOW, RIGHT CLINICAL INFORMATION: Elbow pain COMPARISON: None available. TECHNIQUE: AP, lateral, and oblique views of the right elbow. FINDINGS: Osseous alignment is anatomic. No acute fracture is seen. No significant joint effusion. XR/XR elbow RT min 3V IMPRESSION: No acute findings.
[2022-11-12 17:08] VITALS: BP 152/98; PULSE 92; O2SAT 96
[2022-11-12 17:09] VITALS: BP 131/91; PULSE 96; RESP 16; TEMP 36.8; O2SAT 97; BMI 27.5
--- NOTE | 2022-11-12 19:32 | ED_ITS ---
HPI - Extremity Problem General Chief complaint: Extremity Injury, Upper Stated complaint: RUE PAIN S/P MOVING HEAVY FURNITURE PER EMS Time Seen by Provider: 11/12/22 18:03 Source: patient Mode of arrival: ambulatory Limitations: no limitations History of Present Illness HPI Narrative: 52 yold male presents to the ED for right elbow pain. patient states he was moving furniture and heard a pop in his right elbow and ever since has had pain. Patient denies any other trauma. patient states no other physical complaints. Related Data Previous Rx's Medication Instructions Recorded quetiapine 50 mg tablet (Seroquel) 50 mg PO BID 7 days #14 tabs 09/21/21 acetaminophen 500 mg tablet 1,000 mg PO Q6H PRN fever or pain 03/12/22 (Tylenol Extra Strength) #20 tabs ibuprofen 600 mg tablet 600 mg PO Q6H PRN pain #30 tabs 03/12/22 acetaminophen 325 mg tablet 325 mg PO QID PRN pain 7 days #28 11/12/22 (Tylenol) tabs naproxen 500 mg tablet 500 mg PO BID PRN pain 7 days #14 11/12/22 tabs prednisone 20 mg tablet 40 mg PO DAILY 5 days #10 tabs 11/12/22 Allergies Allergy/AdvReac Type Severity Reaction Status Date / Time No Known Allergies Allergy Verified 06/21/20 14:51 [No Known Allergies*] Review of Systems Review of Systems: hear pop in right elbow Yes all other systems are reviewed and are negative PMFSH Past Medical History Medical History No known health problems Social History Social History Alcohol intake: current Alcohol intake frequency: a few times a week Alcohol type: beer Patient Tobacco Use Status: Current everyday Tobacco user Advance Directives: No Advance Directives Information Provided: No Physical Exam Vital Signs: Vital Signs: Last Vital Signs Temp 98.3 F 11/12/22 17:09 Pulse 96 11/12/22 17:09 Resp 16 11/12/22 17:09 BP 131/91 H 11/12/22 17:09 Pulse Ox 97 11/12/22 17:09 O2 Del Method Room Air 11/12/22 17:09 BMI result Body Mass Index 27.5 Const: General: cooperative, healthy appearing, comfortable, no acute d istress, well developed, alert and awake Orientation/consciousness: oriented to person, oriented to place, oriented to time and patient oriented x3 HEENT: Head: Yes normal to inspection, Yes No palpable skull fracture present, Yes normocephalic, Yes atraumatic and No abrasion Eyes: General: appearance normal, both eyes and all related structures Pu pils: Equal, round and reactive pupils present Neck: Neck: Yes normal visual inspection, Yes full ROM, Yes no lymphadenopathy, Yes no meningeal signs, Yes trachea midline, Yes supple, No anterior neck swelling and No tender Chest: Chest palpation & inspection: normal inspection of the chest and normal palpation of entire chest wall Resp: Effort & Inspection: normal respiratory effort and able to speak in complete sentences Auscultation: clear to auscultation bilaterally Cardio: Jugular venous distension: no JVD Heart sounds: S1 normal heart sound present and S2 normal heart sound present GI: Inspection: Yes normal to inspection and No abdominal wall ecchymosis Palpation (GI): Soft to palpation, not firm, nontender, no guarding and not rigid : General: No CVA tenderness and Yes no CVA tenderness Back/Spine/Pelvis: Back: no CVA tenderness, No CVA tenderness and No back tenderness Skin: General skin exam: no rashes or lesions noted and elasticity normal Neuro: General: oriented to person, oriented to place, oriented to time, patient oriented x3, gait normal, tone normal, moves all extremities, Normal light touch and pain sensation, no meningeal signs, no focal motor deficits, CN's II-XI intact bilaterally and normal sensation to monofilament Cranial nerves: Yes Equal, round and reactive pupils present Extrem: General: Yes normal to inspection and Yes full ROM Shoulder/upper arm images: 1. Slight tenderness on palpation. Pain on range of motion. Negative for ecchymosis, crepitus, warmth, or erythema. Neurovascular and motor exam intact. 2. Slight tenderness on palpation. Pain on range of motion. Negative for ecchymosis, crepitus, warmth, or erythema. Neurovascular and motor exam intact. Psych: Appearance: grossly normal, well kempt and not disheveled Course Course Course Narrative: Right elbow pain after moving heavy furniture hearing pop. Will order x-ray Medical Decision Making Medical Decision Making MDM Narrative: 52-year-old male presents to ED for right elbow pain after hearing a pop in right elbow while moving fracture. Patient denies any other trauma. Patient has complete range of motion of right upper extremity but pain at elbow. Negative for swelling of right upper extremity indicate DVT. Elbow joint not warm or swollen to indicate septic joint. X-ray normal. Patient placed in Santos wrap discharged with steroids and naproxen. Differential Diagnosis Differential Diagnoses: The differential diagnosis associated with the presentation includes (Elbow sprain. Elbow fracture. Forearm fracture. DVT. Septic joint. Cellulitis.) Admission/Observation Consideration of admission/observation: Escalation of care including admission/observation considered Consult Healthcare Provider Management of the patient was discussed with: Hospitalist Independent Interpretation I performed an independent interpretation of an: Plain X-Ray Radiology Impression Discussion of test interpretation with radiology: I have reviewed the radiologist's reading. Prescription Management I considered prescription management with: Pain Medication Discharge Plan Discharge Clinical Impression: Elbow sprain Patient Disposition: Home, Self-Care Instructions: How to Use an Elastic Bandage (ED), Elbow Sprain (ED), R.I.C.E. Treatment (ED) Additional Instructions: X-ray came back negative for fracture. If pain continues and does not improve recommend follow-up with primary care provider for MRI. You will be discharged with pain medication and steroids. Return to the ED immediately for any swelling of right upper extremity, elbow swelling, fever, chills, redness, warmth of extremity, inability to move extremity, chest pain, shortness of breath, red streaks, bluish black discoloration, coolness, or any other concerning symptoms. Prescriptions: New naproxen 500 mg tablet 500 mg PO BID PRN (Reason: pain) 7 Days Qty: 14 0RF prednisone 20 mg tablet 40 mg PO DAILY 5 Days Qty: 10 0RF acetaminophen [Tylenol] 325 mg tablet 325 mg PO QID PRN (Reason: pain) 7 Days Qty: 28 0RF No Action quetiapine [Seroquel] 50 mg tablet 50 mg PO BID 7 Days Qty: 14 0RF acetaminophen [Tylenol Extra Strength] 500 mg tablet 1,000 mg PO Q6H PRN (Reason: fever or pain) Qty: 20 0RF ibuprofen 600 mg tablet 600 mg PO Q6H PRN (Reason: pain) Qty: 30 0RF Stand Alone Forms: Work/School Release Print Language: Croatian
[2022-11-12] MEDS: oxyCODONE HCl Immed Release 5 MG TABLET PO (21:03)
[2022-11-12] MEDS: predniSONE 20 MG TABLET 60 MG PO (21:03)
[2022-11-12 21:12] VITALS: BP 137/96; PULSE 90; RESP 18; TEMP 36.9; O2SAT 97
== END 2022-11-12 21:19 | disposition home or self-care (01) ==
PROVIDERS: Emergency Provider Internal Medicine
DX: S53.401A Unspecified sprain of right elbow, initial encounter (principal); X50.3XXA Overexertion from repetitive movements, initial encounter; Y93.9 Activity, unspecified; Y92.9 Unspecified place or not applicable; Y99.9 Unspecified external cause status
CPT/HCPCS: 73080; 99283

== ENCOUNTER 2023-01-26 00:17 | Emergency (ER) | payer MEDICAID, SELFPAY ==
[2023-01-26] VITALS (11 sets, daily range): BP systolic 125–164; BP diastolic 90–109; PULSE 85–97; RESP 16–22; TEMP 36.6–36.7; O2SAT 95–100; BMI 31.0
--- NOTE | ~2023-01-26 | XR_ITS ---
EXAMINATION: XR CHEST CLINICAL INFORMATION: Chest pain COMPARISON: Chest x-ray 03/12/2022 TECHNIQUE: Frontal portable view of the chest was obtained. 0040 hours FINDINGS: Lung volume is low. No significant abnormality is noted involving the heart, lungs, mediastinum, bony thorax or soft tissues. XR/XR chest 1V IMPRESSION: Unremarkable examination.
--- NOTE | 2023-01-26 00:18 | ECG_ITS ---
Test Reason : CP Blood Pressure : / mmHG Vent. Rate : 091 BPM Atrial Rate : 091 BPM P-R Int : 180 ms QRS Dur : 076 ms QT Int : 344 ms P-R-T Axes : 063 028 074 degrees QTc Int : 423 ms Normal sinus rhythm Normal ECG When compared with ECG of 12-MAR-2022 15:57, ST elevation now present in Inferior leads Referred By: Generic ED Physician Electronically Signed By:CHAVO CROWE
--- NOTE | 2023-01-26 00:34 | MHC.EDTECH ---
Patient arrived by ambulance,patient was changed into hospital attire and placed on media monitor,vitals were taken and EKG was obtained and signed by Doctor. Call shaw is within reach.
[2023-01-26 00:37] LABS: MANUAL DIFF FLAG NO
[2023-01-26 00:55] LABS: Anion Gap 19 (12-20); Blood Urea Nitrogen 16 mg/dL (9-16); Calcium 9.6 mg/dL (8.4-10.2); Carbon Dioxide 17 mmol/L (22-29); Chloride 107 mmol/L (96-108); Creatinine Clr Calc Pharmacy 100.5; Estimated Glomerular Filt Rate > 60; Glucose Random 152 mg/dL (60-115); Potassium 3.6 mmol/L (3.3-5.1); Sodium 139 mmol/L (135-145)
--- NOTE | 2023-01-26 00:57 | ED.CHESTPAIN ---
HPI - Chest Pain General Chief Complaint: Chest Pain Stated Complaint: CP,SOB X20 MIN Time Seen by Provider: 01/26/23 00:43 Source: patient and EMS Mode of arrival: EMS Limitations: no limitations History of Present Illness HPI narrative: 52-year-old male came in by ambulance for evaluation of chest pain. Chest pain started about 30 minutes before coming to the hospital while he was in the car going, patient declined any stressful or strenuous events before the pain started, pain is sharp aching pain to the mid chest above the sternum, pain is localized with no radiation, pain is worsening with taking a deep breath and movements, nothing relieves the pain. Patient decline SOB, no diaphoresis. Had similar pain 3 weeks ago went to [facility] patient reportedly was sent home the same day after negative workup (record was obtained from [facility] the HPI is similar to his presentation today). Patient declined use any drugs in particular cocaine, patient is actively smoker.. Related Data Previous Rx's Medication Instructions Recorded quetiapine 50 mg tablet (Seroquel) 50 mg PO BID 7 days #14 tabs 09/21/21 acetaminophen 500 mg tablet 1,000 mg PO Q6H PRN fever or pain 03/12/22 (Tylenol Extra Strength) #20 tabs ibuprofen 600 mg tablet 600 mg PO Q6H PRN pain #30 tabs 03/12/22 acetaminophen 325 mg tablet 325 mg PO QID PRN pain 7 days #28 11/12/22 (Tylenol) tabs naproxen 500 mg tablet 500 mg PO BID PRN pain 7 days #14 11/12/22 tabs prednisone 20 mg tablet 40 mg PO DAILY 5 days #10 tabs 11/12/22 Allergies Allergy/AdvReac Type Severity Reaction Status Date / Time No Known Allergies Allergy Verified 01/26/23 00:21 [No Known Allergies*] Review of Systems Review of Systems: All other systems are reviewed and are negative Constitutional: Reports as per HPI and Reports no additional constitutional complaints Eyes: Reports as per HPI and Reports no additional eye complaints Reports system reviewed and no additional complaints, except as documented Cardiovascular: Reports as per HPI and Reports no additional cardiovascular complaints Respiratory: Reports as per HPI and Reports no additional respiratory complaints Gastrointestinal: Reports as per HPI and Reports no additional gastrointestinal complaints Genitourinary: Reports no additional female genitourinary complaints Musculoskeletal: Reports no additional musculoskeletal complaints Skin/Breast: Reports system reviewed and no additional complaints, except as docu Psychiatric: Reports no additional psychiatric complaints Endocrine: Reports no additional endocrine complaints Hematologic/Lymphatic: Reports no additional hematologic/lymphatic complaints Allergic/Immunologic: Reports no additional allergic/immunologic complaints Reports system reviewed and no additional complaints, except as documented and Reports Abnormal speech present [facility] Past Medical History Medical History No known health problems Social History Social History Alcohol intake: current Alcohol intake frequency: a few times a week Alcohol type: beer Patient Tobacco Use Status: Current everyday Tobacco user Advance Directives: No Advance Directives Information Provided: Yes Physical Exam Vital Signs: Vital Signs: Last Vital Signs Temp 98.1 F 01/26/23 01:38 Pulse 92 01/26/23 01:38 Resp 18 01/26/23 01:38 BP 153/104 H 01/26/23 01:38 Pulse Ox 100 01/26/23 01:38 O2 Del Method Room Air 01/26/23 01:38 BMI result Body Mass Index 31.0 Vital signs have been reviewed as appeared to be correct. Blood pressure normal. Heart rate normal. Respiration rate normal. Temperature normal. Oxygen saturation normal. Appearance: Alert. Oriented X3. No acute distress. Head: Normal external exam. Normocephalic. Atraumatic. No Khan signs noted. No raccoon eyes noted Eyes: PERRLA. EOMI. Conjunctiva and sclera normal. Eyelids normal. ENT: TM's Normal. Pharynx normal. Uvula midline. Moist mucous membranes. No trismus noted. No drooling noted. No muffled voice noted. Neck: Normal inspection. Neck supple. FROM. No adenopathy. Thyroid Normal. No meningeal signs. No neck mass noted. CVS: Normal heart rate and rhythm. Heart sound normal. No murmurs noted. Pulses normal throughout. Respiratory: No respiratory distress. Painless inspiration. Breath sounds normal. No wheezes/rales/rhonchi noted. Reproducible tenderness over the sternum, no step-off, no deformity. No accessory muscle usage noted or decreased air movement noted. Abdomen: Soft and nontender. Bowel sounds normal in all 4 quadrants. No distention noted. No organomegaly noted. No visible injury noted. Back: No CVA tenderness. Full range of motion noted. Skin: Skin warm and dry. Normal skin color. Normal skin turgor. No rashes/lesions/lacerations noted. Extremities: No lower extremity edema. Extremities exhibit normal range of motion. Extremities nontender. Neuro: Oriented X 3. Cranial nerve exam: II-XII are grossly intact No motor deficit. No sensory deficit. Reflexes normal. Course Course Course Narrative: 52-year-old male came in for evaluation of chest pain that started during breast before, patient is a smoker but no history of HTN or DM. Chest pain has been intermittent on and off currently the pain is about 6/10, 1st troponin is -3 hours troponin is positive, the case was discussed with Dr. Piedra who recommended to transfer the patient to a cardiac catheterization at [facility], the case discussed with Dr. Garcia the intervention general foreman at [facility] who accepted the patient to the cardiac catheterization. Patient received aspirin, heparin drip, statin, and beta-yaa. Medications Administered Discontinued Medications Generic Name Dose Route Start Last Admin Trade Name Freq PRN Reason Stop Dose Admin Ibuprofen 800 mg 01/26/23 00:56 01/26/23 01:03 Ibuprofen 800 Mg Tablet PO 01/26/23 00:57 800 mg ONCE ONE Administration Medical Decision Making Differential Diagnosis Differential Diagnoses: The differential diagnosis associated with the presentation includes (ACS, pulmonary embolism, costochondritis, pneumothorax, pleural effusion, electrolyte abnormalities, severe anemia.) Admission/Observation Consideration of admission/observation: Escalation of care including admission/observation considered Consult Healthcare Provider Management of the patient was discussed with: Inspector Hairspring (Dr. Piedra) Lab Data [facility] Lab Attestation statement: I reviewed the patient's lab results. 01/26/23 00:32 01/26/23 00:32 Labs: Lab Results 01/26/23 01/26/23 01/26/23 Range/Units 00:32 00:32 00:32 WBC 9.7 (4.8-10.8) X10*3/uL RBC 5.41 (4.60-5.80) X10*6/uL Hgb 13.9 L (14.0-18.0) g/dl Hct 43.0 (42.0-52.0) % MCV 79.5 L (80.0-98.0) fL MCH 25.7 L (27.0-33.0) pg MCHC 32.3 (31.0-36.0) g/dl RDW 13.8 (11.0-16.0) % Plt Count 276 (160-400) X10*3/uL MPV 10.5 (9.4-12.4) fL Immature Gran % (Auto) 0.6 H (0.0-0.4) % Neut % (Auto) 42.0 L (45-73) % Lymph % (Auto) 43.8 H (20-40) % [place] % (Auto) 6.7 (2-11) % Eos % (Auto) 5.9 H (0-4) % Baso % (Auto) 1.0 (0-2) % Lymph # (Auto) 4.3 (1.2-4.9) X10*3/uL [place] # (Auto) 0.7 (0.1-1.2) X10*3/uL Eos # (Auto) 0.6 H (0.0-0.4) X10*3/uL Baso # (Auto) 0.1 (0.0-0.2) X10*3/uL Abs Immat Gran (auto) 0.06 H (0.00-0.03) X10*3/uL Absolute Neuts (auto) 4.1 (2.0-8.3) x10*3/uL Absolute Nucleated RBC 0.000 (0.0-0.012) X10*3/uL Nucleated RBC % (auto) 0.0 (0.0-0.2) /100WBC D-Dimer High Sensitivty NG/ML Sodium 139 (135-145) mmol/L Potassium 3.6 (3.3-5.1) mmol/L Chloride 107 (96-108) mmol/L Carbon Dioxide 17 L (22-29) mmol/L Anion Gap 19 (12-20) BUN 16 (9-16) mg/dL Creatinine 0.97 (0.5-1.4) mg/dL Estim Creat Clear Calc 100.5 Estimated GFR > 60 Random Glucose 152 H (60-115) mg/dL Calcium 9.6 (8.4-10.2) mg/dL Troponin I High Sens 6.5 (<3.5-35.0) ng/L 01/26/23 01/26/23 Range/Units 00:59 03:33 WBC (4.8-10.8) X10*3/uL RBC (4.60-5.80) X10*6/uL Hgb (14.0-18.0) g/dl Hct (42.0-52.0) % MCV (80.0-98.0) fL MCH (27.0-33.0) pg MCHC (31.0-36.0) g/dl RDW (11.0-16.0) % Plt Count (160-400) X10*3/uL MPV (9.4-12.4) fL Immature Gran % (Auto) (0.0-0.4) % Neut % (Auto) (45-73) % Lymph % (Auto) (20-40) % [place] % (Auto) (2-11) % Eos % (Auto) (0-4) % Baso % (Auto) (0-2) % Lymph # (Auto) (1.2-4.9) X10*3/uL [place] # (Auto) (0.1-1.2) X10*3/uL Eos # (Auto) (0.0-0.4) X10*3/uL Baso # (Auto) (0.0-0.2) X10*3/uL Abs Immat Gran (auto) (0.00-0.03) X10*3/uL Absolute Neuts (auto) (2.0-8.3) x10*3/uL Absolute Nucleated RBC (0.0-0.012) X10*3/uL Nucleated RBC % (auto) (0.0-0.2) /100WBC D-Dimer High Sensitivty < 150 NG/ML Sodium (135-145) mmol/L Potassium (3.3-5.1) mmol/L Chloride (96-108) mmol/L Carbon Dioxide (22-29) mmol/L Anion Gap (12-20) BUN (9-16) mg/dL Creatinine (0.5-1.4) mg/dL Estim Creat Clear Calc Estimated GFR Random Glucose (60-115) mg/dL Calcium (8.4-10.2) mg/dL Troponin I High Sens 57.4 H D (<3.5-35.0) ng/L Independent Interpretation I performed an independent interpretation of an: EKG (Normal sinus rhythm at 91 beats per minute, normal axis deviation, normal intervals, subtle and abnormal S looping of ST segment in lead II, III and AVF) and Plain X-Ray (Chest: No acute intrathoracic pathology per) Radiology Impression Discussion of test interpretation with radiology: I have reviewed the radiologist's reading. Scores Heart Score History: -0- slightly suspicious ECG: -0- normal Age: -1- >45 - <65 Risk factory: -0- no risk factors known Troponin: -0- < or = normal limit Score: 1 Risk: 1.7% Critical Care Time Critical Care Time Critical Care Time: Yes Total Critical Care Time: 60 Attestation: I spent 60 minutes providing critical care service to the patient, this including time spent at the bedside to evaluate the patient, reassess the patient, monitoring vital signs, review labs, and radiographic studies, counseling the patient/family, discussing the case with consultants, disposition the patient. Discharge Plan Discharge Clinical Impression: ST elevation myocardial infarction (STEMI) Patient Disposition: [facility] Transfer Details: Cardiac catheterization Prescriptions: No Action quetiapine [Seroquel] 50 mg tablet 50 mg PO BID 7 Days Qty: 14 0RF acetaminophen [Tylenol Extra Strength] 500 mg tablet 1,000 mg PO Q6H PRN (Reason: fever or pain) Qty: 20 0RF ibuprofen 600 mg tablet 600 mg PO Q6H PRN (Reason: pain) Qty: 30 0RF naproxen 500 mg tablet 500 mg PO BID PRN (Reason: pain) 7 Days Qty: 14 0RF prednisone 20 mg tablet 40 mg PO DAILY 5 Days Qty: 10 0RF acetaminophen [Tylenol] 325 mg tablet 325 mg PO QID PRN (Reason: pain) 7 Days Qty: 28 0RF Referrals: [facility] [Primary Care Provider] -
[2023-01-26 00:58] LABS: Troponin-I High Sensitivity 6.5 ng/L (<3.5-35.0)
[2023-01-26 01:01] LABS: Basophils Absolute Auto 0.1 X10*3/uL (0.0-0.2); Eosinophils Absolute Auto 0.6 X10*3/uL (0.0-0.4); Eosinophils Percent Auto 5.9 % (0-4); Hemoglobin 13.9 g/dl (14.0-18.0); Imm Gran Abs Auto 0.06 X10*3/uL (0.00-0.03); Imm Gran Pct Auto 0.6 % (0.0-0.4); Lymphocytes Absolute Auto 4.3 X10*3/uL (1.2-4.9); Lymphocytes Percent Auto 43.8 % (20-40); Mean Corpuscular HGB Conc 32.3 g/dl (31.0-36.0); Mean Corpuscular Hemoglobin 25.7 pg (27.0-33.0); Mean Corpuscular Volume 79.5 fL (80.0-98.0); Mean Platelet Volume 10.5 fL (9.4-12.4); Monocytes Absolute Auto 0.7 X10*3/uL (0.1-1.2); Monocytes Percent Auto 6.7 % (2-11); Neutrophils Absolute Auto 4.1 x10*3/uL (2.0-8.3); Platelet Count 276 X10*3/uL (160-400); Red Blood Count 5.41 X10*6/uL (4.60-5.80); Red Cell Distribution Width 13.8 % (11.0-16.0); White Blood Count 9.7 X10*3/uL (4.8-10.8)
[2023-01-26] MEDS: Ibuprofen 800 MG TABLET PO (01:03)
[2023-01-26 01:28] LABS: D Dimer High Sensitivity < 150 NG/ML
--- NOTE | 2023-01-26 01:31 | PC.NURSE ---
Pt yelling out stating he is having severe pain. Vital signs retaken, hypertensive at this time. Encouraged to take deep breaths and let medication given work. Pt also made aware of POC to redraw troponin at 0330 and voices understanding. Pt appears to be more comfortable upon RN leaving room.
--- NOTE | 2023-01-26 01:41 | MHC.EDTECH ---
Completed rounds at this time,vitals taken and are elevated at 153/104, patient is very anxious at this time,this tech reassured patient that he is ok,RN Erna made aware.Call shaw within reach
--- NOTE | 2023-01-26 03:24 | PC.NURSE ---
pt still having chest pain right sided. no improvment to pain level, provider made aware and Erna rn made aware.
[2023-01-26 04:02] LABS: Troponin-I High Sensitivity 57.4 ng/L (<3.5-35.0)
--- NOTE | 2023-01-26 04:39 | PC.NURSE ---
Plan for tranfer to [facility] laborer wharf at this time. EMS called for transport per Brim Curler
[2023-01-26] MEDS: Heparin Sodium,Porcine 5,000 UNIT/ML VIAL 4000 UNIT IVPUSH (04:44)
[2023-01-26] MEDS: Morphine Sulfate 2 MG/ML CARTRIDGE 1 MG IVPUSH (04:44)
[2023-01-26] MEDS: Atorvastatin Calcium 80 MG TABLET PO (04:45)
[2023-01-26] MEDS: Heparin Sodium,Porcine/1/2NS 25,000 UNIT/250 ML IV.SOLN 10 UNIT IVCONT (04:46)
[2023-01-26] MEDS: Nitroglycerin 2 % Oint 1 GM Packet 0.5 INCH TRANSDERMA (04:49)
--- NOTE | 2023-01-26 04:50 | MHC.EDTECH ---
Patient being transferred,vitals were obtained and belonging list completed.
--- NOTE | 2023-01-26 04:51 | PC.NURSE ---
Report given to Immanuel lyman. Pt to [facility]
[2023-01-26] MEDS: Metoprolol Tartrate 25 MG TABLET PO (04:53)
--- NOTE | 2023-01-26 05:14 | PC.NURSE ---
Report to Tamra SORENSON at [facility] lab support technician.
== END 2023-01-26 05:02 | disposition short-term general hospital (02) ==
PROVIDERS: Emergency Provider Emergency Medicine
DX: I21.19 ST elevation (STEMI) myocardial infarction involving other coronary artery of inferior wall (principal); F17.200 Nicotine dependence, unspecified, uncomplicated
CPT/HCPCS: 36415; 71045; 80048; 84484; 85025; 85379; 93005; 96374; 96375; 99285; J1643; J2270

== ENCOUNTER → 2023-01-26 00:18 | Outpatient (BNV) | payer MEDICAID, SELFPAY | PROVIDERS: Emergency Provider Emergency Medicine; Visit Provider Internal Medicine | DX: R07.9 Chest pain, unspecified (principal) | CPT/HCPCS: 93010 ==